=== PATIENT | female | born 1945 | race Caucasian/White ===

== ENCOUNTER → 2018-05-14 10:18 | Outpatient (CLI) | payer MEDICARE, SELFPAY ==
--- NOTE | 2018-05-14 | DI.CT.S_ITS ---
PROCEDURE: CT CHEST W CON INDICATIONS: ANTERIOR LEFT SIDED CHEST WALL PAIN TECHNIQUE: After the administration of intravenous contrast, 5 mm thick sections acquired from the pulmonary apices to the posterior costophrenic angles. 7 mm thick coronal and sagittal MIP reformats were acquired. For radiation dose reduction, the following was used: automated exposure control, adjustment of mA and/or kV according to patient size. COMPARISON: [facility], US, BREAST(S) ULTRASOUND LIMITED, 05/26/2017, 9:28 AM. [facility], US, US GUIDED CYST ASPIRATION BREAST LEFT, 06/06/2017, 3:04 PM. [facility], CR, CHEST 2VW, 04/17/2013, 16:57. FINDINGS: Image quality: Excellent. Lungs and pleura: No acute air space opacities. No pleural effusions or pneumothorax. Central and peripheral airways are patent and normal in caliber. Mediastinum: Heart size is normal. No pericardial effusion. No mediastinal or hilar adenopathy by size criteria. Thoracic aorta and central pulmonary arteries are normal in size. Esophagus is normal in caliber. No hiatal hernia. Bones and chest wall: No suspicious bony lesions. No vertebral body compression fractures. No axillary or supraclavicular adenopathy by size criteria. Thyroid gland is normal. Abdomen: Visualized upper abdominal solid organs appear normal. Upper abdominal bowel loops are normal in caliber. IMPRESSION: No findings to explain chest wall pain. If clinical symptoms persist or clinical suspicion for pathology such as metastatic disease is high, a bone scan is suggested for further evaluation. Dictated by: Kennedy Madrigal M.D. on 05/14/2018 at 13:27 Approved by: Kennedy Madrigal M.D. on 05/15/2018 at 11:09
== END ==
PROVIDERS: PCP Family Medicine; Visit Provider Family Medicine
DX: R07.89 Other chest pain (principal)
CPT/HCPCS: 71260; Q9967

== ENCOUNTER → 2022-06-06 06:59 | Outpatient (CLI) | payer MEDICARE, SELFPAY ==
[2022-06-06 20:46] LABS: COVID19 - ORCAS (NP or Nasal) Negative (Negative)
== END ==
PROVIDERS: PCP Family Medicine; Visit Provider Family Medicine
DX: Z20.822 Contact with and (suspected) exposure to COVID-19 (principal); Z01.812 Encounter for preprocedural laboratory examination
CPT/HCPCS: C9803; U0003

== ENCOUNTER → 2022-06-15 08:05 | Outpatient (CLI) | payer MEDICARE, SELFPAY ==
[2022-06-15 20:59] LABS: COVID19 - ORCAS (NP or Nasal) Negative (Negative)
== END ==
PROVIDERS: PCP Family Medicine; Visit Provider Physician Assistant
DX: Z20.822 Contact with and (suspected) exposure to COVID-19 (principal); Z01.812 Encounter for preprocedural laboratory examination
CPT/HCPCS: C9803; U0003

== ENCOUNTER 2022-11-30 06:55 | Day surgery (SDC) | payer MEDICARE, SELFPAY ==
[2022-11-22 14:55] VITALS: BMI 21.6
[2022-11-30] VITALS (11 sets, daily range): BP systolic 85–134; BP diastolic 41–84; PULSE 76–93; RESP 12–19; TEMP 36.1–36.8; O2SAT 94–100; BMI 21.6
--- NOTE | 2022-11-30 06:00 | DI.RAD.S_ITS ---
PROCEDURE: XR KNEE LT 1TO2V INDICATIONS: prosthesis placement TECHNIQUE: 2 view(s) of the knee acquired. COMPARISON: None. FINDINGS: Bones: Patient is status post knee joint arthroplasty. Hardware components are in expected positions. Visualized bony structures are intact. Soft tissues: Overlying postoperative changes are noted. IMPRESSION: Total knee arthroplasty in position Approved by: Dariel Santana M.D. on 11/30/2022 at 10:52
[2022-11-30] MEDS: ACETAMINOPHEN 325 MG TABLET 975 MG PO (08:03)
[2022-11-30] MEDS: PREGABALIN 75 MG CAPSULE PO (08:03)
[2022-11-30] MEDS: LACTATED RINGERS 1,000 ML 42 ML IV (08:14)
--- NOTE | 2022-11-30 08:18 | PM.PREOP ---
Pre-operative Note Interval Note History & Physical reviewed/Exam performed by Physician: Yes Changes to H&P: No
[2022-11-30 08:22] LABS: COVID19 -Nasal RAPID Negative (Negative)
[2022-11-30] MEDS: CEFAZOLIN 2 GM/100 ML PREMIX 100 ML IV (08:58)
[2022-11-30] MEDS: TRANEXAMIC ACID 1,000 MG VIAL 1000 MG INJ ×2 (09:11→10:01)
--- NOTE | 2022-11-30 09:18 | SUR.OPER ---
Supine on padded OR bed. Pillow under head, arms secured on padded armboards <90 degree abduction. Safety belt across torso. Non-operative leg secured with tape over blanket over lower leg. Operative leg secured in [place]o positioner.
[2022-11-30] MEDS: BUPIVACAINE LIPOSOME 266 MG/20 ML VIAL INJ (10:10)
[2022-11-30] MEDS: MORPHINE 4 MG/ML INJ INJ (10:11)
[2022-11-30] MEDS: BUPIVACAINE 0.25% (PF) VIAL 60 ML INJ (10:16)
[2022-11-30] MEDS: BUPIVACAINE 0.25% (PF) 60 ML, EPINEPHrine 0.3 MG INJ (10:18)
--- NOTE | 2022-11-30 10:26 | P.OP_ITS ---
Operative Date/Time/Diagnoses Date of procedure: 11/30/22 Time of procedure: 10:26 Pre-op diagnosis: Left knee osteoarthritis Post-op diagnosis: same Procedure & Clinicians Procedure: Left total knee replacement Same procedure as scheduled: Yes Indications: The patient has had progressively worsening left knee pain with radiographic changes consistent with arthritis. Non-operative management has failed and the patient has requested total knee replacement. The risks, benefits and alternatives to surgery were discussed with the patient prior to proceeding. Risks discussed included, but were not limited to, failure to relieve pain, stiffness, infection, nerve damage, deep venous thrombosis, pulmonary embolism, stroke, coma, heart attack, permanent paralysis and , as well as the potential need for eventual revision of the prosthetic. Surgeon: [facility] Cashier: Dustin Agudelo Click Yes if Unassisted: No Anesthesia Type: Spinal, Sedation and Local Operative Notes Findings: Severe patellofemoral osteoarthritis with moderate medial and lateral osteoarthritis. Closure Type: primary Specimen(s): none sent Prosthetic devices, grafts, tissues, transplants, or devices: Implants used in this procedure were manufactured by the [employer] and [employer] and included the BCS II Journey total knee replacement with a size 6 left cobalt chromium femur, a size 5 left non porous tibial base plate, a 9 mm cross-linked polyethylene tibial insert and a 32 mm oval Kelly II patella. Applied: implant(s) Estimated Blood Loss (mL): 25 Blood products transfused: none Tourniquet time (min): 46 Procedure in detail: The patient was seen in the pre-operative area, where the left knee was identified as the operative site and this was marked with my initials. The patient received pre-operative antibiotics, and was taken to the operating room and placed on the operative table in the supine position. After satisfactory anesthesia, a online merchandising specialist out was performed. The left leg was encircled with a tourniquet about the proximal thigh, and the leg was prepared from the toes to the tourniquet with ChloroPrep in the usual fashion and draped through sterile drapes. The leg was elevated and exsanguinated with Eschmark bandage and the tourniquet inflated to 250 mmHg pressure. The knee was approached through an approximately 18 cm incision centered over the patella and carried into the knee through a medial parapatellar arthrotomy. The anterior osteophytes and soft tissues were removed. The rotational landmarks of Brittani's line and the transepicondylar axis were marked on the femur with electrocautery, and intramedullary guide holes for the femur and tibia were created. The distal femoral cut was made in 6 degrees of valgus using the intramedullary guide at the primary cut setting. The proximal tibial cut was then made using the intramedullary guide, taking 9 mm of bone off the less involved side. The extension gap was checked and the rotation of the femoral component confirmed with the gap balancing blocks. The anterior, posterior and chamfer cuts were then made. The posterior osteophytes and soft tissues were then removed. The posterior capsule was injected with part of a mixture of 60 ml 0.25% Marcaine mixed with 20 ml Exparel and 4 mg of morphine for post-operative pain control. The remainder of this mixture was injected into the capsule and subcutaneous tissues during cement curing. The tibia was prepared with the rotation set by an extra medullary guide. Trial tibial and femoral components were then placed and the intercondylar notch cut through the femoral trial. Range of motion was 0-140 degrees, with good stability throughout the range. The patella was then cut to accommodate the patellar prosthetic. There was no need for a lateral release. The trials were then removed, and the femoral hole plugged with a bone plug. The bone was prepared with pulsatile lavage, and dried with a sponge. Cement was applied and the final prosthetics placed. Excess cement was removed during and after cement curing. After confirming there was no extruded cement posteriorly, the final tibial insert was placed. The knee was copiously irrigated and the tourniquet deflated. Hemostasis was obtained. The capsule was closed with interrupted # 2 polyester sutures. The subcutaneous layer was closed with 3-0 Vicryl, and the skin with a running 3-0 V-Lock suture and Dermabond. An Aquacel Ag dressing was applied and the patient was taken to recovery having tolerated the procedure well. The services of a skilled communication assistant was required during this procedure to provide positioning of the limb, exposure and retraction to protect vital structures. Without Mr. Agudelo, the procedure could not have proceeded in a safe expedient fashion. Complications: none Post-operative Condition: stable Disposition: PACU Plan for aftercare: The patient will be discharged today provided she is stable in the postoperative area. She may weight bear as tolerated. She will follow up in my office in 2 weeks as previously scheduled.
[2022-11-30] MEDS: ONDANSETRON 4 MG/2 ML INJ IV (10:45)
[2022-11-30] MEDS: HYDROCODONE/ACET 5/325 TABLET 1 TAB PO ×2 (10:58→13:14)
[2022-11-30] MEDS: hydrOXYzine pamoate 25 MG CAPSULE PO (10:59)
[2022-11-30] MEDS: IBUPROFEN 600 MG TABLET PO (12:10)
[2022-11-30] MEDS: CELECOXIB 200 MG CAPSULE PO (13:16)
--- NOTE | 2022-11-30 13:20 | SUR.PHASEII ---
1125 - Received report from above nurse and assumed care of pt. Pt A&Ox3. Able to raise both legs and bend knees. c/o pain 4. Will continue to monitor.
--- NOTE | 2022-11-30 13:27 | SUR.PHASEII ---
1123. pedal pulses good 2+ bilaterally. LLE ppink warm and dry. Rome wrap in place and intact. Ice and elevation in place.
--- NOTE | 2022-11-30 13:29 | SUR.PHASEII ---
pt sits up on side of bed. Able to stand up with walker and 1 nurse assist. pt states is unable to bear wt on operative knee
--- NOTE | 2022-11-30 15:46 | SUR.PHASEII ---
1420 - pt rests quietly. states significant relief after celebrex. Up to bathroom with walker. Ambulates well with moderate pain/stiffness with walker. Voids x 1. Assisted pt in getting dressed. back to wheelchair. Awaits 's return after picking up rx. 1510 - to front entrance per w/c for discharge.
== END 2022-11-30 15:11 | disposition home or self-care (01) ==
LOC: OR 10:23 → AC 10:45
PROVIDERS: PCP Family Medicine; Referring Provider Orthopaedic Surgery; Visit Provider Orthopaedic Surgery
PROC: 0SRD0JZ Replacement of Left Knee Joint with Synthetic Substitute, Open Approach (ICD-10-PCS; CPT 27447; principal; 2022-11-30 08:45)
DX: M17.12 Unilateral primary osteoarthritis, left knee (principal); Z20.822 Contact with and (suspected) exposure to COVID-19; I10 Essential (primary) hypertension; K21.9 Gastro-esophageal reflux disease without esophagitis
CPT/HCPCS: 27447; 73560; 87635; C1776; C9803; C9290; J0171; J0690; J1100; J2250; J2270; J2405; J2704; J3010; J3490

== ENCOUNTER → 2023-08-23 10:52 | Outpatient (CLI) | payer MEDICARE, SELFPAY | PROVIDERS: PCP Family Medicine; Referring Provider Internal Medicine; Visit Provider Internal Medicine | DX: R05.1 Acute cough (principal); Z87.891 Personal history of nicotine dependence; J98.8 Other specified respiratory disorders | CPT/HCPCS: 94060; 94729 ==

== ENCOUNTER → 2024-10-23 15:02 | Outpatient (CLI) | payer MEDICARE, SELFPAY ==
--- NOTE | 2024-10-23 | DI.RAD.S_ITS ---
PROCEDURE: XR DEXA AXIAL SKELETON INDICATIONS: OSTEOPOROSIS COMPARISON: None. FINDINGS: Lumbar Spine: Bone mineral density 0.77 g/cm2, T score -2.2,. Left Femoral Neck: Bone mineral density 0.58 g/cm2, T score -2.5. Left Hip: Bone mineral density 0.72 g/cm2, T score -1.8,. Fracture Risk Calculation (when applicable): Not applicable (T score greater or equal to -1.0 to: NORMAL) (T score from -1.1 to -2.4: OSTEOPENIA) (T score less than or equal to -2.5: OSTEOPOROSIS) IMPRESSION: Osteoporosis. Elevated fracture risk. Follow-up guidelines as follows: Osteoporosis: Consider a repeat DEXA and Vertebral Fracture Assessment (VFA) exam in 2 years or sooner if medically necessary, to reassess this patient's status. Osteopenia: Consider a repeat DEXA in 2-3 years to reassess this patient's status, or if there is a new clinical indication. Normal: Consider a repeat DEXA in 5 years or sooner, or if there is a new clinical indication. All treatment decisions require clinical judgment and consideration of individual patient factors, including patient preferences, comorbidities, previous drug use, risk factors not captured in the FRAX model (e.g., frailty, falls, vitamin D deficiency, increased bone turnover, interval significant decline in bone density ) and possible under- or over-estimation of fracture risk by FRAX. In addition, the NOF Guide recommends that FDA-approved medical therapies be considered in postmenopausal women and men age >= 50 years with a: * Hip or vertebral (clinical or morphometric) fracture * T-score of <=-2.5 at the spine or hip * Ten-year fracture probability by FRAX of >= 3% for hip fracture or >=20% for major osteoporotic fracture. Dictated by: Domingo Hodges M.D. on 10/24/2024 at 10:45 Approved by: Domingo Hodges M.D. on 10/24/2024 at 10:46
== END ==
PROVIDERS: PCP Family Medicine; Referring Provider Family Medicine; Visit Provider Family Medicine
DX: M81.0 Age-related osteoporosis without current pathological fracture (principal)
CPT/HCPCS: 77080

== ENCOUNTER → 2025-06-07 10:44 | Outpatient (CLI) | payer MEDICARE, SELFPAY ==
--- NOTE | 2025-06-07 10:47 | DI.CT.S_ITS ---
PROCEDURE: CT SINUS SCREEN WO CON INDICATIONS: sinus pain TECHNIQUE: Noncontrast 3.0 mm axial images acquired from the frontal sinuses to the mid- sella, with coronal and sagittal reformats. For radiation dose reduction, the following was used: automated exposure control, adjustment of mA and/or kV according to patient size. COMPARISON: None. FINDINGS: Image quality: Excellent. Maxillary Sinuses: No bony remodeling or destruction. Sinuses are clear. Ethmoid Air Cells: No bony remodeling or destruction. Sinuses are clear. Sphenoid Sinuses: No bony remodeling or destruction. Sinuses are clear. Frontal Sinuses: No bony remodeling or destruction. Sinuses are clear. Ostiomeatal Complexes: Ostiomeatal complexes are patent. Aerated right-sided Randolph cell. Miscellaneous: Visualized intra-orbital contents are normal. Diminutive right middle nasal turbinate. No bobbi bullosa or paradoxical turbinate curvature. No nasal septal deviation. IMPRESSION: No acute fluid levels or mucosal thickening. Right Randolph cell. Dictated by: Radha Rangel M.D. on 06/07/2025 at 21:08 Approved by: Radha Rangel M.D. on 06/07/2025 at 21:26
== END ==
PROVIDERS: PCP Family Medicine; Referring Provider Family Medicine; Visit Provider Family Medicine
DX: J32.0 Chronic maxillary sinusitis (principal); R50.9 Fever, unspecified; J34.89 Other specified disorders of nose and nasal sinuses; J84.9 Interstitial pulmonary disease, unspecified; Z87.09 Personal history of other diseases of the respiratory system
CPT/HCPCS: 70486